=== PATIENT | female | born 1985 | race Caucasian/White ===

== ENCOUNTER 2020-05-30 18:49 | Emergency (ER) | payer MEDICAID ==
[~2020-05-30] VITALS: Ht 165.1 cm; Wt 56.7 kg
--- NOTE | 2020-05-30 19:11 | NUR ---
TANNER JIMENEZ at bedside for MSE
--- NOTE | 2020-05-30 19:22 | NUR ---
Patient noted ambulating with steady gait to radiology department
--- NOTE | 2020-05-30 19:32 | NUR ---
patient returned, no distress noted
--- NOTE | 2020-05-30 19:38 | NUR ---
Lab at bedside for blood draw at this time, no signs of distress noted, no complaint of pain at this time.
--- NOTE | 2020-05-30 20:32 | NUR ---
Patient discharged to home in stable condition. Patient noted ambulating with steady gait. Written and verbal after care instructions given. no signs of acute distress noted. Instucted to follow up with primary care physcian. Patient verbalizes understanding of instructions. Stressed follow up or return to ER for worsening s/s.
[2020-05-30 20:34] VITALS: BP 119/66
== END 2020-05-30 20:33 | disposition home or self-care (01) ==
LOC: ER 18:53
DX: R09.89 Other specified symptoms and signs involving the circulatory and respiratory systems (principal)
CPT/HCPCS: 36415; 70360; 84443; A4663